=== PATIENT | male | born 2000 | race Caucasian/White ===

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

== ENCOUNTER 2021-01-21 10:29 | Emergency (ER) | payer MEDICAID ==
[2021-01-21 11:27] LABS: EOS # 0.01 (0.04-0.40); EOS % 0.2 % (0.0-4.0); HEMATOCRIT 46.7 % (36.0-47.0); HEMOGLOBIN 16.2 g/dL (12.5-16.1); LYMPH# 0.82 (1.50-4.00); MEAN CELL VOLUME 86 fl (78-95); MEAN CORPUSCULAR HEMOGLOBIN 30 pg (26-32); MEAN CORPUSCULAR HGB CONC 35 g/dL (33-37); MEAN PLATELET VOLUME 9.4 fl (7.4-10.4); MONO # 0.56 (0.20-0.80); NEU # 4.67 (1.40-6.50); PLATELET COUNT 213 K/mm3 (130-400); RED BLOOD COUNT 5.46 M/mm3 (4.20-5.60); RED CELL DISTRIBUTION WIDTH 11.9 % (11.5-14.5); WHITE BLOOD COUNT 6.1 K/mm3 (4.8-10.8)
[2021-01-21 12:08] VITALS: BP 123/72
== END 2021-01-21 12:12 | disposition home or self-care (01) ==
LOC: ED 10:29
PROVIDERS: Family Medicine
DX: B34.9 Viral infection, unspecified (principal)
CPT/HCPCS: 90715